=== PATIENT | female | born 1985 | race Caucasian/White ===

== ENCOUNTER 2018-01-18 21:40 | Emergency (ER) | payer OTHER, SELFPAY ==
[2018-01-18 21:41] VITALS: BP 141/65; PULSE 69; RESP 18; TEMP 36.6; O2SAT 98; BMI 20.5
--- NOTE | 2018-01-18 21:51 | CT_ITS ---
CT abdomen pelvis wo con CLINICAL INDICATION: Right flank pain ITS.REASON: possible kidney stone ORDERING PHYSICIAN: Delon Alfaro MD PATIENT AGE: 32 years COMPARISON: None TECHNIQUE: Axial images obtained with sagittal and coronal reformats. PROCEDURE: Oral Contrast: None IV Contrast: None . FINDINGS: Minimal atelectatic change in the right lung base. The liver, spleen, adrenal glands, and pancreas are unremarkable. Gallbladder is contracted. There is a mild amount of retained secretion/food within the stomach which is distended. No renal calculi, ureteral calculi, or hydronephrosis is evident. The 7 mm interpolar cyst is present in the right kidney. The urinary bladder is unremarkable. No intestinal obstruction or free air. Unremarkable appendix. There is a mild amount retained colonic feces. There are postsurgical changes of the anterior abdominal wall with multiple abdominal wall at 6 Prior hysterectomy. No pelvic mass or focal inflammatory change. Tiny umbilical hernia containing fat. No acute bony anomalies. IMPRESSION: 1. No acute abdominal or pelvic findings. 2. Distended stomach containing residual food/secretions. Please correlate with the patient's timing of last meal. 3. No renal or ureteral calculi.
[2018-01-18 22:00] LABS: Microscopic, Urine URINE MICROSCOPIC (MICROSCOPIC)
[2018-01-18 22:01] LABS: Appearance,Urine CLEAR (Clear); Bilirubin,Urine Negative (Negative); Blood, Urine Negative (Negative); Color,Urine YELLOW (Yellow); Glucose,Urine (UA) Negative (Negative); Ketones,Urine TRACE (Negative); Leukocyte Esterase,Urine TRACE (Negative); Nitrate,Urine Negative (Negative); Protein,Urine Negative (Negative); Specific Gravity, Urine >= 1.030 (1.005-1.030); Urobilinogen,Urine 0.2 EU/dl (0.2)
[2018-01-18 22:07] LABS: Basophils % 0.4 % (0.1-2.0); Eosinophils # 0.2 K/mm3 (0.0-0.4); Eosinophils % 1.8 % (0.1-12.0); Hematocrit 39.3 % (37.0-47.0); Hemoglobin 12.9 g/dL (12.2-16.2); Lymphocytes # 4.1 K/mm3 (0.7-4.5); Lymphocytes % 38.8 K/mm3 (10-50); Mean Corpuscular HGB Conc 32.9 g/dL (31.8-35.4); Mean Corpuscular Hemoglobin 31.2 pg (27.0-31.2); Mean Corpuscular Volume 94.9 fl (81-99); Mean Platelet Volume 8.8 fl (7.4-10.4); Monocytes # 0.6 K/mm3 (0.1-1.0); Monocytes % 5.3 % (1.7-9.3); Neutrophils # 5.7 K/mm3 (1.8-7.8); Neutrophils % 53.7 % (37.0-80.0); Platelet Count 311 K/mm3 (142-424); Red Blood Count 4.14 M/mm3 (4.20-5.40); White Blood Count 10.5 K/mm3 (4.8-10.8)
[2018-01-18 22:10] LABS: Amorphous Sediment,Urine Trace /lpf; Bacteria,Urine 1+ /lpf
[2018-01-18 22:18] LABS: Alanine Aminotransferase 19 U/L (12-78); Albumin Level 4.3 gm/dL (3.4-5.0); Albumin/Globulin Ratio 1.2 (1.1-1.8); Alkaline Phosphatase 119 U/L (46-116); Anion Gap 8.2 mEq/L (5-15); Aspartate Amino Transferase 7 U/L (15-37); Bilirubin,Total 0.2 mg/dL (0.2-1.0); Blood Urea Nitrogen 15 mg/dL (7-18); Calcium 8.7 mg/dL (8.5-10.1); Carbon Dioxide 32 mmol/L (21.0-32.0); Chloride 102 mmol/L (98-107); Creatinine Clearance Estimated 72 mL/min (0-300); Creatinine,Serum 0.83 mg/dL (0.55-1.02); Estimated Glomerular Filt Rate 79 ml/min (>60); GFR (African American) 95 ML/MIN (>60); Globulin 3.6 gm/dl (1.3-3.2); Glucose 84 mg/dL (74-106); Potassium 4.2 mmoL/L (3.5-5.1); Sodium 138 mmol/L (136-145); Total Protein,Serum 7.9 gm/dL (6.4-8.2)
--- NOTE | 2018-01-18 22:44 | HMH.EDGENADL ---
ED Disposition Clinical Impression: UTI (urinary tract infection) Qualifiers: Urinary tract infection type: acute cystitis Hematuria presence: without hematuria Qualified Code(s): N30.00 - Acute cystitis without hematuria Disposition: Home, Self-Care Condition on Discharge: Good Instructions: DI for Urinary Tract Infection (UTI) Additional Instructions: fluids and see pcp for urine culture results Prescriptions: cephALEXin [Keflex 500mg Cap] 500 mg PO QID #20 cap Referrals: Jodie Edward PA [Primary Care Provider] - - Critical Care Critical Care Time: No Attestation: On 01/18/18, the high probability of a clinically significant, sudden or life threatening deterioration of the following system(s) required my full and direct attention, intervention and personal management. The time I documented below is in addition to time spent performing reported procedures but includes the following listed in this critical care notation. Medical Decision Making - Medical Records Medical records reviewed: Yes: I reviewed the patient's medical records. Vital Signs: 01/18/18 21:41 Temperature 97.9 F Temperature Source Oral Pulse Rate [Right Radial] 69 Respiratory Rate 18 Blood Pressure [Right Arm] 141/65 Blood Pressure Mean [Right Arm] 90 Blood Pressure Source [Right Arm] Automatic Cuff Blood Pressure Position [Right Arm] Supine 02 Sat by Pulse Oximetry 98 Oxygen Delivery Method Room Air - Lab Data Lab results reviewed: Yes: I reviewed the patient's lab results. Lab Results 01/18/18 21:55: Urine Color Yellow, Urine Appearance Clear, Urine pH 6.0, Ur Specific [place] >= 1.030, Urine Protein Negative, Urine Glucose (UA) Negative, Urine Ketones Trace, Urine Blood Negative, Urine Nitrate Negative, Urine Bilirubin Negative, Urine Urobilinogen 0.2, Ur Leukocyte Esterase Trace, Urine RBC 3-5, Urine WBC 10-20, Ur Squamous Epith Cells 3-5, Amorphous Sediment Trace, Urine Bacteria 1+ 01/18/18 21:55: WBC 10.5, RBC 4.14 L, Hgb 12.9, Hct 39.3, MCV 94.9, MCH 31.2, MCHC 32.9, RDW 13.0, Plt Count 311, MPV 8.8, Neut % (Auto) 53.7, Lymph % (Auto) 38.8, [place] % (Auto) 5.3, Eos % (Auto) 1.8, Baso % (Auto) 0.4, Neut # (Auto) 5.7, Lymph # (Auto) 4.1, [place] # (Auto) 0.6, Eos # (Auto) 0.2, Baso # (Auto) 0.0 01/18/18 21:55: Sodium 138, Potassium 4.2, Chloride 102, Carbon Dioxide 32, Anion Gap 8.2, BUN 15, Creatinine 0.83, Estimated Creat Clear 72, Estimated GFR 79, Est GFR ( Amer) 95, Glucose 84, Calcium 8.7, Total Bilirubin 0.2, AST 7 L, ALT 19, Alkaline Phosphatase 119 H, Total Protein 7.9, Albumin 4.3, Globulin 3.6 H, Albumin/Globulin Ratio 1.2 Result diagrams: 01/18/18 21:55 01/18/18 21:55 Orders (Tests/Meds): ORDERS Category Date Time Status CT abdomen pelvis wo con Stat Cat Scan 01/18/18 21:51 Taken Urine Culture Stat Micro 01/18/18 21:55 Received - CT Data CT Scan: Abdomen, Pelvis Time Received: 23:[address] Reviewed: Yes: I have viewed the radiologist's interpretation Preliminary Findings: Normal/NAD - Doroteo Inquiry Pt receiving controlled substance: No General Adult HPI - General Chief complaint: PAIN Stated complaint: Back pain Time Seen by Provider: 01/18/18 22:44 Mode of Arrival: Ambulatory Source of Information: Patient, Significant Other, Medical Record Limitations: No Limitations Description of Symptoms (Recalled from ER Triage Doc. by RN): states that her lower back is hurting and radiates around to the front of her abdomen. states it [place] when she pees. - History of Present Illness HPI narrative: pt with rt sided flank pain with painful urination with no gross hematuria Onset (ago): hour(s) Radiation: flank Severity: moderate Associated symptoms: nausea/vomiting - Related Data Previous Rx's Medication Instructions Recorded cephALEXin [Keflex 500mg Cap] 500 mg PO QID #20 cap 01/18/18 Allergies Allergy/AdvReac Type Severity Reaction Status Date / Time Sulfonamide A
[2018-01-18 23:30] VITALS: BP 110/67; PULSE 76; RESP 16; TEMP 37.2; O2SAT 99
== END 2018-01-18 23:32 | disposition home or self-care (01) ==
PROVIDERS: Emergency Provider Emergency Medicine; Family Provider Emergency Medicine; PCP Physician Assistant
DX: N30.00 Acute cystitis without hematuria (principal); Z88.2 Allergy status to sulfonamides; F17.210 Nicotine dependence, cigarettes, uncomplicated
CPT/HCPCS: 74176; 80053; 81001; 85025; 87086; 96374; 96375; 99283

== ENCOUNTER → 2018-01-30 10:29 | Outpatient (CLI) | payer OTHER, SELFPAY ==
[2018-02-01 12:02] LABS: Neisseria gonorrhoeae, NAA Negative (Negative)
== END ==
PROVIDERS: Visit Provider Physician Assistant
DX: R30.0 Dysuria (principal); K43.9 Ventral hernia without obstruction or gangrene; N28.1 Cyst of kidney, acquired
CPT/HCPCS: 87491; 87591

== ENCOUNTER → 2018-02-28 09:10 | Outpatient (CLI) | payer OTHER, SELFPAY ==
--- NOTE | 2018-02-28 09:12 | CT_ITS ---
CT abdomen pelvis wo/w con Ordering Physician: GABRIELLE Boyd Patient Age: 32 years: Female HISTORY: ITS.REASON: Ventral hernia, right renal cyst, abdominal pain Abdominal pain right flank pain right renal cyst. TECHNIQUE: Actually helical CT of the abdomen and pelvis pre and post IV contrast 75 cc of Isovue-370 was utilized but no oral contrast. Precontrast imaging followed x 70 s postcontrast image set and then delayed 10 minute postcontrast images. Sagittal and coronal reconstructions on CT workstation. COMPARISON :Previous CT abdomen and pelvis from December 2017 FINDINGS Lung bases clear. Heart normal size. Liver. Satisfactory. No focal lesions. No intrahepatic biliary ductal dilatation Spleen unremarkable. Adrenal satisfactory. Pancreas I suspect that unopacified bowel loops most likely account for the appearance overlying the tail of the pancreas. Particularly when when reviewed in conjunction with the previous December exam. tract RIGHT KIDNEY there is some subtle mild fullness of the right pelvicalyceal system particularly towards the superior aspect.(Coronal image 38 & axial 31-33)... No calculi evident in at the kidney or nor right ureter. Right ureter normal course and caliber. The postcontrast images prompt nephrogram at right kidney 70 seconds post contrast; and good excretion of contrast into the slightly generous right pelvicalyceal structures at 10 minute delayed image.. I do not see a discrete mass nor cause for this fullness of the right calyces. No prominent extrarenal pelvis or. No UPJ stenosis evident. . 8 mm small cyst posterior lower pole right kidney. LEFT KIDNEY. No significant findings. Normal collecting system. Ureters normal in course and caliber bilaterally at the pelvic basin there a few tiny punctate phlebolith calcifications most evident towards the right pelvis. One of these is seen just along the posterior margin of the distal most right ureter but no ureteral calculi are seen. No bladder calculi evident. Bladder wall appears normal thickness. A patient with previous hysterectomy.. No adnexal masses -Mesh graft is seen at the anterior most abdomen/pelvis from previous lower left quadrant hernia repair.,. Low the level of umbilicus. GI tract. Moderate stool throughout colon. There is some upper normal fluid at the proximal and mid small bowel with some scattered small air-fluid levels. Distal small bowel unremarkable. Moderate stool seen throughout the colon. IMPRESSION... 1. Right Kidney:. Mild Fullness of Calyces & infundibulum Throughout right kidney. : No cause for such identified.. No calculi no mass evident No dilatation of renal pelvis nor right ureter. . Postcontrast images show No appreciable delayed nephrogram &. Normal excretion on 10 minute delayed film.. Bladder unremarkable Any urinary tract infection currently? 2. .. Left kidney unremarkable 3. Previous anterior mesh graft hernia repair left lower quadrant towards/pelvis
== END ==
PROVIDERS: Family Provider Emergency Medicine; PCP Physician Assistant; Visit Provider Physician Assistant
DX: K43.9 Ventral hernia without obstruction or gangrene (principal); N28.1 Cyst of kidney, acquired; R30.0 Dysuria
CPT/HCPCS: 74170; 74178; Q9967

== ENCOUNTER → 2018-12-19 13:22 | Outpatient (CLI) | payer OTHER, SELFPAY ==
[2018-12-19 13:57] LABS: Alanine Aminotransferase 18 U/L (12-78); Albumin Level 4.4 gm/dL (3.4-5.0); Albumin/Globulin Ratio 1.4 (1.1-1.8); Alkaline Phosphatase 117 U/L (46-116); Anion Gap 14.1 mEq/L (5-15); Aspartate Amino Transferase 9 U/L (15-37); Bilirubin,Total 0.2 mg/dL (0.2-1.0); Blood Urea Nitrogen 15 mg/dL (7-18); Calcium 9.4 mg/dL (8.5-10.1); Carbon Dioxide 26 mmol/L (21.0-32.0); Chloride 103 mmol/L (98-107); Chol/HDL Ratio 5.8 (1-3.5); Cholesterol 216 mg/dL (140-200); Creatinine,Serum 0.68 mg/dL (0.55-1.02); Estimated Glomerular Filt Rate 98 ml/min (>60); GFR (African American) 119 ML/MIN (>60); Globulin 3.2 gm/dl (1.3-3.2); Glucose 85 mg/dL (74-106); HDL Cholesterol 37 mg/dL (29-89); LDL Cholesterol 168 mg/dL (0-130); Potassium 5.1 mmoL/L (3.5-5.1); Sodium 138 mmol/L (136-145); T4 (Thyroxine) 8.1 ug/dl (4.7-13.3); Thyroid Stimulating Hormone 1.63 uIU/ml (0.358-3.740); Total Protein,Serum 7.6 gm/dL (6.4-8.2); Triglycerides 53 mg/dL (30-200); VLDL Cholesterol 11 mg/dL (0-40)
[2018-12-19 14:46] LABS: Basophils % 0.4 % (0.1-2.0); Eosinophils # 0.2 K/mm3 (0.0-0.4); Eosinophils % 2.7 % (0.1-12.0); Hemoglobin 13.4 g/dL (12.2-16.2); Lymphocytes # 2.3 K/mm3 (0.7-4.5); Lymphocytes % 27.5 % (10-50); Mean Corpuscular HGB Conc 31.9 g/dL (31.8-35.4); Mean Corpuscular Hemoglobin 31.1 pg (27.0-31.2); Mean Corpuscular Volume 97.7 fl (81-99); Mean Platelet Volume 9.3 fl (7.4-10.4); Monocytes # 0.5 K/mm3 (0.1-1.0); Monocytes % 5.4 % (1.7-9.3); Neutrophils # 5.3 K/mm3 (1.8-7.8); Platelet Count 312 K/mm3 (142-424); Red Cell Distribution Width 13.1 % (11.5-17.5); White Blood Count 8.3 K/mm3 (4.8-10.8)
[2018-12-21 08:30] LABS: Hep A Ab, IgM Negative (Negative); Hepatitis B Core Antibody IgM Negative (Negative); Hepatitis B Surface Antigen Negative (Negative)
[2018-12-21 17:12] LABS: EBV Ab VCA, IgM <36.0 U/mL (0.0-35.9); FSH 24.2 mIU/mL (.); Hepatitis C Antibody <0.1 s/co ratio (0.0-0.9); Vitamin D 25 Hydroxy 25.1 ng/mL (30.0-100.0)
[2018-12-23 17:14] LABS: Estrogen 47 pg/mL (.)
== END ==
PROVIDERS: Visit Provider Physician Assistant
DX: Z00.00 Encounter for general adult medical examination without abnormal findings (principal); J02.9 Acute pharyngitis, unspecified; R23.2 Flushing
CPT/HCPCS: 80053; 80061; 80074; 82652; 82672; 83001; 83002; 84436; 84443; 85025; 86664; 86665; 87070

== ENCOUNTER → 2021-05-26 18:00 | Outpatient (CLI) | payer OTHER, SELFPAY ==
[2021-05-26 19:19] LABS: Basophils # 0.1 K/mm3 (0-0.2); Basophils % 0.6 % (0.1-2.0); Eosinophils # 0.1 K/mm3 (0.0-0.4); Eosinophils % 1.3 % (0.1-12.0); Hematocrit 44.1 % (37.0-47.0); Hemoglobin 14.1 g/dL (12.2-16.2); Lymphocytes # 3.2 K/mm3 (0.7-4.5); Lymphocytes % 45.4 % (10-50); Mean Corpuscular HGB Conc 32.1 g/dL (31.8-35.4); Mean Corpuscular Hemoglobin 31.5 pg (27.0-31.2); Mean Corpuscular Volume 98.3 fl (81-99); Mean Platelet Volume 9.6 fl (7.4-10.4); Monocytes # 0.3 K/mm3 (0.1-1.0); Monocytes % 4.6 % (1.7-9.3); Neutrophils # 3.4 K/mm3 (1.8-7.8); Platelet Count 407 K/mm3 (142-424); Red Blood Count 4.49 M/mm3 (4.20-5.40); Red Cell Distribution Width 13.4 % (11.5-17.5); White Blood Count 7.1 K/mm3 (4.8-10.8)
[2021-05-26 19:25] LABS: Alanine Aminotransferase 7 U/L (12-78); Albumin Level 5.1 g/dl (3.5-5.0); Albumin/Globulin Ratio 1.6 (1.1-1.8); Alkaline Phosphatase 105 U/L (38-126); Anion Gap 13.8 mEq/L (5-15); Aspartate Amino Transferase 19 U/L (14-36); Bilirubin,Total 0.5 mg/dl (0.2-1.3); Blood Urea Nitrogen 11 mg/dl (7-17); Calcium 9.6 mg/dl (8.4-10.2); Carbon Dioxide 27 mmol/L (22.0-30.0); Chloride 104 mmol/L (98-107); Estimated Glomerular Filt Rate 112 ml/min (>60); GFR (African American) 135 ML/MIN (>60); Globulin 3.1 g/dL (1.3-3.2); Glucose 87 mg/dl (74-100); Lipase 83 U/L (23-300); Potassium 4.8 mmoL/L (3.5-5.1); Sodium 140 mmol/L (136-145); Total Protein,Serum 8.2 g/dl (6.3-8.2)
[2021-05-26 20:07] LABS: Erythrocyte Sedimentation Rate 10 mm/hr (0-20)
[2021-05-26 20:49] LABS: Free T4 (Free Thyroxine) 0.93 ng/dl (0.78-2.19)
[2021-05-26 21:03] LABS: Thyroid Stimulating Hormone 2.61 uIU/mL (0.465-4.68)
[2021-05-26 21:22] LABS: Vitamin B12 371 pg/mL (239-931)
[2021-05-28 10:53] LABS: Hep A Ab, IgM Negative (Negative); Hepatitis B Core Antibody IgM Negative (Negative); Hepatitis B Surface Antigen Negative (Negative); Hepatitis C Antibody <0.1 s/co ratio (0.0-0.9)
== END ==
PROVIDERS: Visit Provider Emergency Medicine
DX: R10.9 Unspecified abdominal pain (principal)
CPT/HCPCS: 80053; 80074; 82607; 83690; 84439; 84443; 85025; 85651

== ENCOUNTER → 2021-06-17 07:40 | Outpatient (CLI) | payer OTHER, SELFPAY ==
--- NOTE | 2021-06-17 07:41 | CT_ITS ---
PROCEDURE: CT SOFT TISSUE NECK WO CON CLINICAL INDICATION: possible mass COMPARISON: No exams were available for comparison TECHNIQUE: CT neck soft tissues with axial, coronal, and sagittal multiplanar reformations, performed without contrast. Dose modulation, automated exposure control, and/or iterative reconstruction were used for dose reduction. FINDINGS: Masses:No suspicious masses or inflammatory changes are seen. Lymph nodes: Few scattered level 2A and 3 lymph nodes are noted, largest on the left measuring 1.2 x 1.2 centimeters, not significant by size criteria. No other significant lymphadenopathy is noted. Salivary: The salivary glands are symmetric and unremarkable bilaterally. Thyroid: The thyroid gland is within normal limits. No evidence of mass lesions within the limitations of unenhanced study. Mucosa: There is mucosal asymmetry in the with prominence of the left tonsil is noted. This extends superiorly into the up to the level of few fellow with minor asymmetry of the oropharynx. The rest of the peritonsillar soft tissues and lateral parapharyngeal spaces are within normal limits. No other asymmetric mucosal thickening is detected in the nasopharynx, oropharynx, hypopharynx, or larynx. Vessels: Vascular structures are unremarkable. Bones: Osseous structures are unremarkable. SinusesThe visualized paranasal sinuses are clear. Lungs: There is a subpleural nodule measuring 3 millimeters in the right upper lobe. Minor paraseptal emphysematous changes noted bilaterally. Calcified granuloma in the right upper lobe. Calcified lymph nodes partially visualized in the mediastinum. IMPRESSION: Asymmetry of the oropharynx with prominence of the left tonsillar pillar is noted with preservation of the parapharyngeal fat planes, incompletely evaluated due to lack of intravenous contrast. Few scattered level 2 a and 3 lymph nodes noted measuring up to 1.2 centimeters in short axis diameter, not significant by size criteria. Direct visualization is suggested. No other focal masses or suspicious lesions within the limitations of unenhanced study. Dictated by: Jennifer Crawford 06/17/2021 08:49 Jennifer Crawford in [facility] 06/17/2021 08:49
--- NOTE | 2021-06-17 07:41 | CT_ITS ---
PROCEDURE: CT ABDOMEN PELVIS W CON CLINICAL INDICATION: questionable mass / weight loss COMPARISON: CT CT ABDOMEN PELVIS WO CON from 10/23/2019 TECHNIQUE: 75 mL of Isovue 370 Axial images obtained with sagittal and coronal reformats. All CT scans at the facility use one or more dose reduction, viz: automated exposure control, ma/kV adjustment per patient size (including targeted exams where dose is matched to indication, i.e. head), or iterative reconstruction technique. FINDINGS: LOWER THORAX: Unremarkable. HEPATOBILIARY: Liver: No focal hepatic lesions. Gallbladder: The gallbladder is unremarkable Biliary: No intrahepatic or extrahepatic ductal dilation. PANCREAS: No focal masses or ductal dilatation. SPLEEN:No splenomegaly. ADRENALS:No adrenal nodules. KIDNEYS/URETERS/BLADDER: No hydronephrosis, stones, or solid mass lesions are seen in the visualized portions of the kidneys.Focal hypodense lesion noted in the right kidney measuring 1 centimeter, most likely represents a cyst. PERITONEUM / RETROPERITONEUM: No free air or fluid. LYMPH NODES: No retroperitoneal or mesenteric lymphadenopathy. GI TRACT: No distention, wall thickening, or inflammatory stranding. Minor fecal retention of the colon is noted. There is apparent long segment wall thickening of the rectosigmoid colon without evidence of pericolonic stranding. This may be secondary to under distention. Appendix is not visualized. No secondary signs of appendicitis are noted. VASCULAR:The aorta is normal in caliber, without evidence of abdominal aortic aneurysm or dissection. ABDOMINAL WALL: Small fat containing umbilical hernia is noted. Postsurgical changes of the anterior abdominal wall, secondary to prior hernia repair. SOFT TISSUES: Unremarkable. BONES: Unremarkable. IMPRESSION: No acute intra-abdominal abnormality. Dictated by: Jennifer Crawford 06/17/2021 09:08 Jennifer Crawford in [facility] 06/17/2021 09:08
--- NOTE | 2021-06-17 07:41 | XR_ITS ---
PROCEDURE: XR CHEST 2V CLINICAL HISTORY: shortness of breath COMPARISON: CR CXR2V XR chest 2V from 02/06/[address] angio chest from 02/06/2019 CR XR CHEST 2V from 10/23/2019 FINDINGS: Focal nodular appearing density is noted projecting over the right lower zone. The cardiomediastinal silhouette and pulmonary vascularity are otherwise within normal limits. The lungs are clear without infiltrates, suspicious nodules, or pleural effusions. No acute bony abnormalities. IMPRESSION: Focal nodular appearing density projecting over the right lower zone, most likely represents nipple shadows. Repeat chest radiograph with nipple markers is recommended for further evaluation. Dictated by: Jennifer Crawford 06/17/2021 08:30 Jennifer Crawford in [facility] 06/17/2021 08:30
== END ==
PROVIDERS: PCP Emergency Medicine; Visit Provider Emergency Medicine
DX: R22.1 Localized swelling, mass and lump, neck (principal); R06.02 Shortness of breath; R63.4 Abnormal weight loss
CPT/HCPCS: 70490; 71046; 74177; Q9967

== ENCOUNTER → 2021-06-30 17:16 | Outpatient (CLI) | payer OTHER, SELFPAY ==
[2021-06-30 19:19] LABS: Amphetamine/Metha Screen,Urine Negative ng/ml (<1000); Barbiturates Screen,Urine Negative ng/ml (<200)
[2021-06-30 19:21] LABS: Benzodiazepines Screen,Urine Negative ng/ml (<200)
[2021-06-30 19:22] LABS: Cannabinoid Screen,Urine Positive ng/ml (<50)
[2021-06-30 19:23] LABS: Cocaine Screen,Urine Negative ng/ml (<300); Methadone Screen,Urine Negative ng/ml (<300)
[2021-06-30 19:24] LABS: Opiate Screen,Urine Positive ng/ml (<300)
[2021-06-30 19:25] LABS: Phencyclidine Screen,Urine Negative ng/ml (<25)
== END ==
PROVIDERS: Visit Provider Emergency Medicine
DX: Z79.899 Other long term (current) drug therapy (principal)
CPT/HCPCS: 80305

== ENCOUNTER → 2021-12-21 17:51 | Outpatient (CLI) | payer OTHER, SELFPAY ==
[2021-12-21 19:30] LABS: Amphetamine/Metha Screen,Urine Negative ng/ml (<1000)
[2021-12-21 19:31] LABS: Barbiturates Screen,Urine Negative ng/ml (<200); Benzodiazepines Screen,Urine Negative ng/ml (<200)
[2021-12-21 19:32] LABS: Cannabinoid Screen,Urine Positive ng/ml (<50)
[2021-12-21 19:33] LABS: Cocaine Screen,Urine Negative ng/ml (<300); Methadone Screen,Urine Negative ng/ml (<300)
[2021-12-21 19:34] LABS: Opiate Screen,Urine Positive ng/ml (<300)
[2021-12-21 19:35] LABS: Phencyclidine Screen,Urine Negative ng/ml (<25)
== END ==
PROVIDERS: Visit Provider Emergency Medicine
DX: Z79.899 Other long term (current) drug therapy (principal)
CPT/HCPCS: 80305

== ENCOUNTER → 2022-02-16 17:00 | Outpatient (CLI) | payer OTHER, SELFPAY ==
[2022-02-16 21:18] LABS: Phencyclidine Screen,Urine Negative ng/ml (<25)
[2022-02-16 21:24] LABS: Amphetamine/Metha Screen,Urine Negative ng/ml (<1000)
[2022-02-16 21:25] LABS: Barbiturates Screen,Urine Negative ng/ml (<200); Benzodiazepines Screen,Urine Negative ng/ml (<200)
[2022-02-16 21:26] LABS: Cannabinoid Screen,Urine Positive ng/ml (<50)
[2022-02-16 21:29] LABS: Cocaine Screen,Urine Negative ng/ml (<300); Opiate Screen,Urine Positive ng/ml (<300)
[2022-02-16 21:30] LABS: Methadone Screen,Urine Negative ng/ml (<300)
== END ==
PROVIDERS: Visit Provider Emergency Medicine
DX: Z79.899 Other long term (current) drug therapy (principal)
CPT/HCPCS: 80305

== ENCOUNTER → 2022-04-18 13:15 | Outpatient (CLI) | payer OTHER, SELFPAY ==
[2022-04-18 22:06] LABS: Amphetamine/Metha Screen,Urine Negative ng/ml (<1000)
[2022-04-18 22:07] LABS: Barbiturates Screen,Urine Negative ng/ml (<200)
[2022-04-18 22:08] LABS: Benzodiazepines Screen,Urine Negative ng/ml (<200); Cannabinoid Screen,Urine Positive ng/ml (<50)
[2022-04-18 22:09] LABS: Cocaine Screen,Urine Negative ng/ml (<300); Methadone Screen,Urine Negative ng/ml (<300)
[2022-04-18 22:10] LABS: Opiate Screen,Urine Negative ng/ml (<300)
[2022-04-18 22:11] LABS: Phencyclidine Screen,Urine Negative ng/ml (<25)
== END ==
PROVIDERS: PCP Emergency Medicine; Visit Provider Emergency Medicine
DX: Z79.899 Other long term (current) drug therapy (principal)
CPT/HCPCS: 80305

== ENCOUNTER → 2022-06-14 06:34 | Outpatient (CLI) | payer OTHER, SELFPAY ==
[2022-06-13 19:26] LABS: Amphetamine/Metha Screen,Urine Negative ng/ml (<1000); Barbiturates Screen,Urine Negative ng/ml (<200)
[2022-06-13 19:27] LABS: Benzodiazepines Screen,Urine Negative ng/ml (<200); Cannabinoid Screen,Urine Positive ng/ml (<50)
[2022-06-13 19:28] LABS: Cocaine Screen,Urine Negative ng/ml (<300)
[2022-06-13 19:29] LABS: Methadone Screen,Urine Negative ng/ml (<300); Opiate Screen,Urine Negative ng/ml (<300)
[2022-06-13 19:30] LABS: Phencyclidine Screen,Urine Negative ng/ml (<25)
== END ==
PROVIDERS: PCP Emergency Medicine; Visit Provider Emergency Medicine
DX: F41.9 Anxiety disorder, unspecified (principal)
CPT/HCPCS: 80305

== ENCOUNTER → 2022-08-10 06:18 | Outpatient (CLI) | payer OTHER, SELFPAY ==
[2022-08-10 18:11] LABS: Amphetamine/Metha Screen,Urine Negative ng/ml (<1000)
[2022-08-10 18:12] LABS: Barbiturates Screen,Urine Negative ng/ml (<200); Benzodiazepines Screen,Urine Negative ng/ml (<200)
[2022-08-10 18:13] LABS: Cannabinoid Screen,Urine Positive ng/ml (<50)
[2022-08-10 18:14] LABS: Cocaine Screen,Urine Negative ng/ml (<300)
[2022-08-10 18:15] LABS: Methadone Screen,Urine Negative ng/ml (<300); Opiate Screen,Urine Negative ng/ml (<300)
[2022-08-10 18:16] LABS: Phencyclidine Screen,Urine Negative ng/ml (<25)
== END ==
PROVIDERS: PCP Emergency Medicine; Visit Provider Emergency Medicine
DX: Z79.899 Other long term (current) drug therapy (principal)
CPT/HCPCS: 80305

== ENCOUNTER → 2022-10-07 13:56 | Outpatient (CLI) | payer OTHER, SELFPAY ==
[2022-10-07 18:34] LABS: Amphetamine/Metha Screen,Urine Negative ng/ml (<1000); Barbiturates Screen,Urine Negative ng/ml (<200)
[2022-10-07 18:35] LABS: Benzodiazepines Screen,Urine Negative ng/ml (<200)
[2022-10-07 18:36] LABS: Cannabinoid Screen,Urine Positive ng/ml (<50); Cocaine Screen,Urine Negative ng/ml (<300)
[2022-10-07 18:37] LABS: Methadone Screen,Urine Negative ng/ml (<300)
[2022-10-07 18:38] LABS: Opiate Screen,Urine Negative ng/ml (<300); Phencyclidine Screen,Urine Negative ng/ml (<25)
== END ==
PROVIDERS: PCP Emergency Medicine; Visit Provider Emergency Medicine
DX: Z76.0 Encounter for issue of repeat prescription (principal); Z79.899 Other long term (current) drug therapy
CPT/HCPCS: 80305

== ENCOUNTER → 2022-12-06 11:20 | Outpatient (CLI) | payer OTHER, SELFPAY ==
[2022-12-06 15:22] LABS: Amphetamine/Metha Screen,Urine Negative ng/ml (<1000); Benzodiazepines Screen,Urine Negative ng/ml (<200)
[2022-12-06 15:23] LABS: Barbiturates Screen,Urine Negative ng/ml (<200)
[2022-12-06 15:24] LABS: Cocaine Screen,Urine Negative ng/ml (<300); Methadone Screen,Urine Negative ng/ml (<300)
[2022-12-06 15:25] LABS: Cannabinoid Screen,Urine Positive ng/ml (<50)
[2022-12-06 15:26] LABS: Opiate Screen,Urine Negative ng/ml (<300)
[2022-12-06 15:27] LABS: Phencyclidine Screen,Urine Negative ng/ml (<25)
== END ==
PROVIDERS: PCP Emergency Medicine; Visit Provider Emergency Medicine
DX: Z79.899 Other long term (current) drug therapy (principal)
CPT/HCPCS: 80305

== ENCOUNTER → 2023-02-01 13:22 | Outpatient (CLI) | payer OTHER, SELFPAY ==
[2023-02-01 19:17] LABS: Amphetamine/Metha Screen,Urine Negative ng/ml (<1000)
[2023-02-01 19:18] LABS: Barbiturates Screen,Urine Negative ng/ml (<200); Benzodiazepines Screen,Urine Negative ng/ml (<200)
[2023-02-01 19:19] LABS: Cannabinoid Screen,Urine Positive ng/ml (<50)
[2023-02-01 19:20] LABS: Cocaine Screen,Urine Negative ng/ml (<300); Methadone Screen,Urine Negative ng/ml (<300)
[2023-02-01 19:21] LABS: Opiate Screen,Urine Positive ng/ml (<300)
[2023-02-01 19:22] LABS: Phencyclidine Screen,Urine Negative ng/ml (<25)
== END ==
PROVIDERS: PCP Emergency Medicine; Visit Provider Emergency Medicine
DX: Z79.899 Other long term (current) drug therapy (principal)
CPT/HCPCS: 80305

== ENCOUNTER 2023-02-01 13:25 | Emergency (ER) | payer OTHER, SELFPAY ==
[2023-02-01 13:26] VITALS: BP 157/86; PULSE 65; RESP 17; TEMP 36.7; O2SAT 96; BMI 16.9
[2023-02-01 13:37] VITALS: BP 157/86; PULSE 66; O2SAT 96
[2023-02-01 13:52] LABS: Chloride 104 mmol/L (98-107); Sodium 138 mmol/L (136-145)
[2023-02-01 13:55] LABS: Alanine Aminotransferase 17 U/L (12-78); Alkaline Phosphatase 107 U/L (38-126); Amylase 106 U/L (30-110); Aspartate Amino Transferase 26 U/L (14-36); Bilirubin,Total 0.4 mg/dl (0.2-1.3); Blood Urea Nitrogen 10 mg/dl (7-17); Calcium 8.8 mg/dl (8.4-10.2); Carbon Dioxide 26 mmol/L (22.0-30.0); Creatinine Clearance Estimated 78 mL/min (50-200); Estimated Glomerular Filt Rate 111 ml/min (>60); GFR (African American) 135 ML/MIN (>60); Glucose 106 mg/dl (74-100)
[2023-02-01 13:56] LABS: Albumin Level 4.7 g/dl (3.5-5.0); Albumin/Globulin Ratio 1.4 (1.1-1.8); Globulin 3.4 g/dL (1.3-3.2); Lipase 104 U/L (23-300); Total Protein,Serum 8.1 g/dl (6.3-8.2)
--- NOTE | 2023-02-01 14:04 | CT_ITS ---
FINAL REPORT TECHNIQUE: Axial CT images of the abdomen and pelvis were obtained after the administration of IV contrast. Coronal reformatted images were also obtained and reviewed.This study was performed with techniques to keep radiation doses as low as reasonably achievable (ALARA). Individualized dose reduction techniques using automated exposure control or adjustment of mA and/or kV according to the patient's size were employed. CLINICAL HISTORY: abd pain COMPARISON: 06/17/2021 FINDINGS: CT OF THE ABDOMEN AND PELVIS WITH CONTRAST Abdomen: The lung bases are clear. The heart is normal in size. The liver has an unremarkable appearance, without evidence of mass or biliary ductal dilatation. The spleen is unremarkable. No adrenal mass is present. The pancreas has an unremarkable appearance. The kidneys are normal, without evidence of mass or hydronephrosis. The aorta is normal in caliber. There is no free fluid or adenopathy. No mass or abnormal fluid collection is seen. There is a small umbilical hernia containing fat which is stable. Pelvis: There are postoperative changes in the anterior pelvic wall. The appendix is not visualized. The urinary bladder is unremarkable. No inflammatory process is seen. There is no evidence of mass or adenopathy. There is no evidence of bowel obstruction. Post hysterectomy. IMPRESSION: No mass or localized inflammatory process identified. Reviewed, Interpreted and Dictated by Dakota Hughes III, MD Transcribed by Bethany Vázquez Authenticated and [facility]
--- NOTE | 2023-02-01 14:05 | HMH.EDABDPAI ---
Discharge Plan Disposition Patient Disposition: Left Against Medical Advice Condition: Undetermined Prescriptions Prescriptions: No Action tizanidine 4 mg tablet 4 mg PO BID Rx Instructions: TAKE 1 TABLET BY MOUTH 2 TIMES A DAY clonazepam [Klonopin] 0.5 mg tablet 0.5 mg PO BID pantoprazole 20 mg tablet,delayed release (DR/EC) 20 mg PO DAILY Rx Instructions: TAKE 1 TABLET BY MOUTH ONCE A DAY escitalopram oxalate 20 mg tablet 20 mg PO DAILY Rx Instructions: TAKE 1 TABLET BY MOUTH ONCE A DAY oxycodone 10 mg tablet 10 mg PO TID Referrals Follow up/Referrals: Delon Alfaro MD [Primary Care Provider] - See instructions Clinical Impressions Clinical Impression: Left against medical advice Instructions Patient Instructions: DI for Acute Abdominal Pain Discharge ED Provider: Wilfrido Garbre Abdominal Pain HPI General Chief Complaint: Abdominal Pain Stated Complaint: phy ref from Dr. Alfaro, pain below ribs Time Seen by Provider: 02/01/23 14:00 Mode of Arrival: Ambulatory Source of Information: Patient Limitations: No Limitations Description of Symptoms (Recalled from ER Triage Doc. by RN): 37 F presents with RUQ abdominal pain. She was seen with Dr. Alfaro in his office today for this pain. He has referred her to our ED for evaluation of possible incarcerated ventral hernia. Patient reports significant history of hernias in the past which have been repaired with mesh. NAD on arrival. History of Present Illness HPI narrative: Patient presents with a several week history of upper abdominal pain. She was seen by her PCP today and referred here out of concern for possible incarcerated hernia as she states that the pain is gotten worse in the last 24 hours or so. She notes nausea but denies vomiting she denies fever she does have a history of prior herniorrhaphy. Related Data Home Medications Medication Instructions Recorded Confirmed clonazepam 0.5 mg tablet (Klonopin) 0.5 mg PO BID Anxiety 02/01/23 02/01/23 escitalopram oxalate 20 mg tablet 20 mg PO DAILY Mood 02/01/23 02/01/23 oxycodone 10 mg tablet 10 mg PO TID Chronic Pain 02/01/23 02/01/23 pantoprazole 20 mg tablet,delayed 20 mg PO DAILY GERD 02/01/23 02/01/23 release tizanidine 4 mg tablet 4 mg PO BID RLS 02/01/23 02/01/23 Allergies Allergy/AdvReac Type Severity Reaction Status Date / Time Sulfonamide Allergy Unknown Uncoded 02/01/23 12:58 [facility] Disclaimer: The information contained in this section may have been updated after the patient was seen, as this information can be updated by other users. Social History Smoking Status: Current every day smoker tobacco type: cigarettes packs per day: 1 alcohol intake: never substance use type: denies use current occupational status: unemployed Travel in the last 8 weeks: None ROS Obtained: Yes All systems reviewed & no additional complaints except as documented Physical Exam General General appearance: alert and in no apparent distress Head Head exam: atraumatic, normocephalic and normal inspection Eye Eye exam: Present normal appearance, PERRL and EOMI ENT ENT exam: Present normal exam, normal oropharynx, mucous membranes moist, TM's normal bilaterally and normal external ear exam Neck Neck exam: Present normal inspection, full ROM and trachea midline; Absent meningismus or lymphadenopathy Chest Chest inspection: Present normal inspection and symmetric chest wall rise; Absent tenderness Respiratory Respiratory exam: Present normal lung sounds bilaterally; Absent respiratory distress Cardiovascular Cardiovascular exam: Present regular rate and normal rhythm; Absent JVD Abdominal Exam Abdominal exam: Present tenderness (There is mild periumbilical and epigastric tenderness without rebound or guarding. Bowel sounds are normal. There are no palpable masses.) Extremities Exam Extremitie
[2023-02-01 14:08] LABS: Basophils # 0.1 K/mm3 (0-0.2); Eosinophils % 0.7 % (0.1-12.0); Hematocrit 40.7 % (37.0-47.0); Hemoglobin 13.4 g/dL (12.2-16.2); Lymphocytes # 2.1 K/mm3 (0.7-4.5); Lymphocytes % 35.1 % (10-50); Mean Corpuscular HGB Conc 32.9 g/dL (31.8-35.4); Mean Corpuscular Volume 97.2 fl (81-99); Mean Platelet Volume 9.1 fl (7.4-10.4); Monocytes # 0.3 K/mm3 (0.1-1.0); Monocytes % 5.6 % (1.7-9.3); Neutrophils # 3.5 K/mm3 (1.8-7.8); Neutrophils % 57.6 % (37.0-80.0); Platelet Count 312 K/mm3 (142-424); Red Blood Count 4.19 M/mm3 (4.20-5.40); Red Cell Distribution Width 13.6 % (11.5-17.5)
--- NOTE | 2023-02-01 14:09 | PC.NURSE ---
Urine collected and sent to Lab. Patient given blankets. No other request at this time
[2023-02-01 14:12] LABS: Microscopic, Urine URINE MICROSCOPIC (MICROSCOPIC)
[2023-02-01 14:21] LABS: Appearance,Urine CLEAR (Clear); Bilirubin,Urine Negative (Negative); Blood, Urine 1+ (Negative); Color,Urine YELLOW (Yellow); Glucose,Urine (UA) Negative (Negative); Ketones,Urine Negative (Negative); Leukocyte Esterase,Urine Negative (Negative); Nitrate,Urine Negative (Negative); Protein,Urine Negative (Negative); Specific Gravity, Urine >= 1.030 (1.005-1.030); Urobilinogen,Urine 0.2 EU/dl (0.2)
[2023-02-01 14:24] LABS: HCG Qualitative, Serum Negative (Negative)
[2023-02-01 14:44] LABS: Bacteria,Urine Trace /lpf; Mucus,Urine 1+ /lpf
--- NOTE | 2023-02-01 15:21 | PC.NURSE ---
pt left AMA at this time, pt reported to staff was getting very anxious wanted to leave. I spoke with pt states im about to panic . states she doesn't like hospitals, states I've been here too long already and I want to go home . visitor with pt mentioned pt being in pain, offered to pt to go ask ER MD for pain medication for pt, pt declined. Educated pt to return to ER for new or worsening symptoms and educated pt to follow up with her primary MD, pt verbalized understanding.
[2023-02-01 15:38] VITALS: BP 157/86; PULSE 69; RESP 17; TEMP 36.6; O2SAT 96
== END 2023-02-01 15:40 | disposition left against medical advice (07) ==
PROVIDERS: Emergency Provider Emergency Medicine; PCP Emergency Medicine
DX: R10.0 Acute abdomen (principal); K43.6 Other and unspecified ventral hernia with obstruction, without gangrene; F17.210 Nicotine dependence, cigarettes, uncomplicated
CPT/HCPCS: 74177; 80053; 81001; 82150; 83690; 84703; 85025; 96374; 99284; 99285; J0696; Q9967

== ENCOUNTER → 2023-02-16 08:55 | Outpatient (CLI) | payer OTHER, SELFPAY ==
--- NOTE | 2023-02-16 08:55 | US_ITS ---
FINAL REPORT CLINICAL HISTORY: Right upper quadrant pain FINDINGS: ULTRASOUND RIGHT UPPER QUADRANT Sonographic imaging of the right upper quadrant was obtained. The pancreas is partially obscured. The liver is unremarkable. There is no evidence of gallstones. There is no gallbladder wall thickening. There is no biliary ductal dilatation. The common duct is normal at 2 mm. The right kidney measures 10.8 cm in length. There is a 1.1 cm cyst and questionable tiny nonobstructing stones. IMPRESSION: 1.1 cm right renal cyst. Questionable tiny nonobstructing right renal stones. Reviewed, Interpreted and Dictated by Oren Anderson MD Transcribed by Deborah Ruelas Authenticated and . [facility]
== END ==
PROVIDERS: PCP Emergency Medicine; Visit Provider Surgery
DX: R10.11 Right upper quadrant pain (principal)
CPT/HCPCS: 76705

== ENCOUNTER → 2023-04-04 10:00 | Outpatient (CLI) | payer OTHER, SELFPAY ==
[2023-04-04 16:10] LABS: Amphetamine/Metha Screen,Urine Negative ng/ml (<1000); Barbiturates Screen,Urine Negative ng/ml (<200)
[2023-04-04 16:11] LABS: Benzodiazepines Screen,Urine Negative ng/ml (<200)
[2023-04-04 16:12] LABS: Cannabinoid Screen,Urine Positive ng/ml (<50); Cocaine Screen,Urine Negative ng/ml (<300)
[2023-04-04 16:13] LABS: Methadone Screen,Urine Negative ng/ml (<300); Opiate Screen,Urine Positive ng/ml (<300)
[2023-04-04 16:14] LABS: Phencyclidine Screen,Urine Negative ng/ml (<25)
== END ==
PROVIDERS: PCP Emergency Medicine; Visit Provider Emergency Medicine
DX: Z79.899 Other long term (current) drug therapy (principal)
CPT/HCPCS: 80305

== ENCOUNTER → 2023-05-29 13:33 | Outpatient (CLI) | payer OTHER, SELFPAY ==
[2023-05-29 13:16] LABS: Barbiturates Screen,Urine Negative ng/ml (<200)
[2023-05-29 13:17] LABS: Benzodiazepines Screen,Urine Negative ng/ml (<200); Cannabinoid Screen,Urine Positive ng/ml (<50)
[2023-05-29 13:18] LABS: Cocaine Screen,Urine Negative ng/ml (<300); Methadone Screen,Urine Negative ng/ml (<300)
[2023-05-29 13:19] LABS: Opiate Screen,Urine Negative ng/ml (<300)
[2023-05-29 13:21] LABS: Phencyclidine Screen,Urine Negative ng/ml (<25)
[2023-05-29 13:23] LABS: Amphetamine/Metha Screen,Urine Negative ng/ml (<1000)
== END ==
PROVIDERS: PCP Emergency Medicine; Visit Provider Emergency Medicine
DX: M54.12 Radiculopathy, cervical region (principal)
CPT/HCPCS: 80305

== ENCOUNTER → 2023-07-17 15:18 | Outpatient (CLI) | payer OTHER, SELFPAY ==
[2023-07-17 15:21] LABS: Amphetamine/Metha Screen,Urine Negative ng/ml (<1000); Barbiturates Screen,Urine Negative ng/ml (<200)
[2023-07-17 15:24] LABS: Benzodiazepines Screen,Urine Negative ng/ml (<200)
[2023-07-17 15:25] LABS: Cannabinoid Screen,Urine Positive ng/ml (<50)
[2023-07-17 15:27] LABS: Methadone Screen,Urine Negative ng/ml (<300)
[2023-07-17 15:28] LABS: Cocaine Screen,Urine Negative ng/ml (<300); Opiate Screen,Urine Negative ng/ml (<300)
[2023-07-17 15:29] LABS: Phencyclidine Screen,Urine Negative ng/ml (<25)
== END ==
PROVIDERS: PCP Emergency Medicine; Visit Provider Emergency Medicine
DX: M54.16 Radiculopathy, lumbar region (principal)
CPT/HCPCS: 80305

== ENCOUNTER → 2023-09-11 23:51 | Outpatient (CLI) | payer OTHER, SELFPAY ==
[2023-09-11 18:54] LABS: Amphetamine/Metha Screen,Urine Negative ng/ml (<1000); Barbiturates Screen,Urine Negative ng/ml (<200)
[2023-09-11 18:55] LABS: Benzodiazepines Screen,Urine Negative ng/ml (<200)
[2023-09-11 18:56] LABS: Cannabinoid Screen,Urine Positive ng/ml (<50)
[2023-09-11 19:01] LABS: Cocaine Screen,Urine Negative ng/ml (<300); Methadone Screen,Urine Negative ng/ml (<300)
[2023-09-11 19:02] LABS: Phencyclidine Screen,Urine Negative ng/ml (<25)
[2023-09-11 19:03] LABS: Opiate Screen,Urine Positive ng/ml (<300)
== END ==
PROVIDERS: PCP Emergency Medicine; Visit Provider Emergency Medicine
DX: Z79.899 Other long term (current) drug therapy (principal)
CPT/HCPCS: 80305

== ENCOUNTER → 2023-11-16 08:28 | Outpatient (CLI) | payer OTHER, SELFPAY ==
[2023-11-16 18:43] LABS: Basophils # 0.1 K/mm3 (0-0.2); Basophils % 0.7 % (0.1-2.0); Eosinophils # 0.2 K/mm3 (0.0-0.4); Eosinophils % 1.9 % (0.1-12.0); Hematocrit 41.6 % (37.0-47.0); Hemoglobin 13.9 g/dL (12.2-16.2); Lymphocytes # 2.4 K/mm3 (0.7-4.5); Lymphocytes % 27.3 % (10-50); Mean Corpuscular HGB Conc 33.3 g/dL (31.8-35.4); Mean Corpuscular Hemoglobin 33.3 pg (27.0-31.2); Mean Corpuscular Volume 100.2 fl (81-99); Mean Platelet Volume 10.6 fl (7.4-10.4); Monocytes # 0.5 K/mm3 (0.1-1.0); Monocytes % 5.4 % (1.7-9.3); Neutrophils # 5.7 K/mm3 (1.8-7.8); Neutrophils % 64.7 % (37.0-80.0); Platelet Count 253 K/mm3 (142-424); Red Blood Count 4.15 M/mm3 (4.20-5.40); Red Cell Distribution Width 13.6 % (11.5-17.5); White Blood Count 8.8 K/mm3 (4.8-10.8)
[2023-11-16 20:18] LABS: Alanine Aminotransferase 23 U/L (12-78); Albumin Level 4.5 g/dl (3.5-5.0); Albumin/Globulin Ratio 1.6 (1.1-1.8); Alkaline Phosphatase 106 U/L (38-126); Anion Gap 8.2 mEq/L (5-15); Aspartate Amino Transferase 36 U/L (14-36); Bilirubin,Total 0.3 mg/dl (0.2-1.3); Blood Urea Nitrogen 10 mg/dl (7-17); Carbon Dioxide 29 mmol/L (22.0-30.0); Chloride 104 mmol/L (98-107); Chol/HDL Ratio 5.5 (1-3.5); Cholesterol 225 mg/dl (140-200); Estimated Glomerular Filt Rate 93 ml/min (>60); GFR (African American) 112 ML/MIN (>60); Globulin 2.9 g/dL (1.3-3.2); Glucose 94 mg/dl (74-100); HDL Cholesterol 41 mg/dl (40-60); Potassium 5.2 mmoL/L (3.5-5.1); Sodium 136 mmol/L (136-145); Total Protein,Serum 7.4 g/dl (6.3-8.2); Triglycerides 66 mg/dl (30-150); VLDL Cholesterol 13 mg/dL (0-40)
[2023-11-16 20:29] LABS: Direct LDL Cholesterol 157.54 mg/dL (100-129)
[2023-11-16 20:38] LABS: 25-OH Vitamin D, Total 21.2 ng/mL (30-100)
[2023-11-16 20:42] LABS: Barbiturates Screen,Urine Negative ng/ml (<200)
[2023-11-16 20:43] LABS: Amphetamine/Metha Screen,Urine Negative ng/ml (<1000)
[2023-11-16 20:44] LABS: Benzodiazepines Screen,Urine Negative ng/ml (<200)
[2023-11-16 20:45] LABS: Cannabinoid Screen,Urine Positive ng/ml (<50); Cocaine Screen,Urine Negative ng/ml (<300)
[2023-11-16 20:47] LABS: Methadone Screen,Urine Negative ng/ml (<300)
[2023-11-16 20:48] LABS: Opiate Screen,Urine Negative ng/ml (<300); Phencyclidine Screen,Urine Negative ng/ml (<25); Thyroid Stimulating Hormone 1.12 uIU/mL (0.465-4.68)
[2023-11-26 16:14] LABS: Alprazolam Negative (Cutoff=100); Benzodiazepines Positive ng/mL (Cutoff=100); Clonazepam Positive (.); Clonazepam Confirm 430 ng/mL (Cutoff=100); Flurazepam Negative (Cutoff=100); Lorazepam Negative (Cutoff=100); Midazolam Negative (Cutoff=100); Opiates Negative ng/mL (Cutoff=100); Temazepam Negative (Cutoff=100); Triazolam Negative (Cutoff=100)
== END ==
PROVIDERS: PCP Nurse Practitioner Family; Visit Provider Nurse Practitioner Family
DX: E55.9 Vitamin D deficiency, unspecified (principal); R53.83 Other fatigue; F41.9 Anxiety disorder, unspecified; Z79.899 Other long term (current) drug therapy; Z68.1 Body mass index [BMI] 19.9 or less, adult
CPT/HCPCS: 80053; 80061; 80305; 80346; 80361; 82306; 84443; 85025; G0480

== ENCOUNTER 2023-12-18 12:21 | Outpatient (CLI) | payer OTHER, SELFPAY ==
[2023-12-26 08:32] LABS: Alprazolam Negative (Cutoff=100); Benzodiazepines Negative ng/mL (Cutoff=100); Clonazepam Negative (Cutoff=100); Flurazepam Negative (Cutoff=100); Lorazepam Negative (Cutoff=100); Midazolam Negative (Cutoff=100); Opiates Negative (Cutoff=100); Temazepam Negative (Cutoff=100); Triazolam Negative (Cutoff=100)
== END 2023-12-18 23:59 ==
LOC: LAB.DROPOF 12:22
PROVIDERS: PCP Family Medicine; Visit Provider Family Medicine
DX: Z79.899 Other long term (current) drug therapy (principal)
CPT/HCPCS: 80346; 80361; 80365; G0480